=== PATIENT | male | born 2000 | race Two or more races ===

== ENCOUNTER 2021-02-16 17:29 | Emergency (ER) | payer SELFPAY ==
[~2021-02-16] VITALS: Ht 172.7 cm; Wt 70.3 kg
[2021-02-16 18:40] VITALS: BP 143/80
== END 2021-02-16 20:00 | disposition home or self-care (01) ==
LOC: ER 17:29 → EDBD 17:29 → ER 19:54
DX: S81.011A Laceration without foreign body, right knee, initial encounter (principal); W26.0XXA Contact with knife, initial encounter; Y93.89 Activity, other specified; Y92.89 Other specified places as the place of occurrence of the external cause; Y99.0 Civilian activity done for income or pay
CPT/HCPCS: 12001